=== PATIENT | female | born 1960 | race Caucasian/White ===

== ENCOUNTER → 2025-01-30 12:40 | Outpatient (REF) | payer MEDICARE, OTHER, SELFPAY | LOC: WDC 12:40 | PROVIDERS: ATTENDING PHYSICIAN Internal Medicine | DX: R92.333 Mammographic heterogeneous density, bilateral breasts (principal) | CPT/HCPCS: 76641 ==

== ENCOUNTER 2025-03-24 09:22 | Emergency (ER) | payer MEDICARE, OTHER, SELFPAY ==
[2025-03-24 09:24] VITALS: BP 115/84
[2025-03-24 09:58] VITALS: BP 131/85; BMI 23.6
--- NOTE | 2025-03-24 10:15 | EDRN ---
the pts came out of the pts room and approached this RN at the nurses station and asked this RN to adjust the pts HOB, this RN adjusted the pts HOB to the pts liking, the pt stated that her nose was bleeding, no bleeding currently
--- NOTE | 2025-03-24 10:16 | EDRN ---
Dr. [facility]
--- NOTE | 2025-03-24 11:06 | ED.GENMED ---
Addendum entered and electronically signed by Dali Livingston MD 03/24/25 14:37:
Patient adamantly refused tetanus shot, stating she is very allergic to it
Original Note:
History of Present Illness
General
Chief Complaint: Fall
Source: patient
Exam Limitations: none
Time Seen by Provider: 03/24/25 09:53
Nursing documentation reviewed up to this point in time: agreed with
History of Present Illness
History of Present Illness:
The patient is a pleasant 64-year-old female on no blood thinners, who reports that she tripped and fell over a cement sidewalk while walking her dog earlier today. Patient reports she fell onto both knees, her left elbow, her left shoulder and hit
the left side of her head. Patient reports that the left lens of her glasses cracked. Patient reports that she hit her face very hard against a cement. Patient also reports a small amount of bleeding from the left nostril. Patient has abrasions
of her left elbow, her bilateral knees, as well as a small laceration of the left eyebrow. Patient complains of significant pain along the left upper side of her face. She denies severe headache, nausea, vomiting or dizziness.
Past History
Past History
ED Past Medical History: Psychiatric (Anxiety)
ED Past Surgical History: Other (Lumpectomy)
Social History
Tobacco: Non-smoker
Alcohol: Other
Drug: None
Personal: Other
Living: with family
Employment: Other
Family History
Family History: Other
Review of Systems
Review of Systems
Allergies reviewed?: Yes
All Other Systems: ROS reviewed and negative except as documented in HPI and ROS
Constitutional: Reports no symptoms
EENT: Reports other (Soreness just left to left eye around left orbital area. No visual changes)
Respiratory: Reports no symptoms
Cardiac: Reports no symptoms
ABD/GI: Reports no symptoms
: Reports no symptoms
Musculoskeletal: Reports joint pain
Skin: Reports other
Neurological: Reports no symptoms
Endocrine: Reports no symptoms
Hematologic/Lymphatic: Reports no symptoms
Psychiatric: Reports no symptoms
Phy Exam
Physical Exam
Physical Exam:
General: Patient is nontoxic, conversational, smiling and laughing
HEENT: No scalp contusion or skull deformity, C-spine is nontender, ecchymotic left bony orbital area. Left ecchymotic upper cheek area. Extraocular muscles intact. 1 cm lac along left eyebrow
Cardiovascular is regular rate and rhythm. No chest wall tenderness
Lungs are clear bilaterally. Vertebral spine is nontender throughout
Abdomen is soft and nontender. No flank tenderness
Mild ecchymoses and soft tissue tenderness of left humeral area. Abrasion left lateral elbow. Pelvis and hips are nontender. Bilateral knee abrasions with mild tenderness of right patellar area
Neuro extraocular muscles intact, PERRL, 5 out of 5 strength in all extremities without drift. Normal [id number]
Course
Orders/Labs/Results
Orders:
Orders
03/24/25 09:57
CT Head W/o Iv Contrast Urgent
Comment:
Reason For Exam: fall with head strike
03/24/25 10:45
CT Facial Bones W/o Iv Contras Urgent
Comment:
Reason For Exam: fall
Shoulder, Left 2 View CR [CR Shoulder - Left Min 2 View*] Urgent
Comment:
Reason For Exam: fall, L shoulder pain
03/24/25 10:46
CR Knee- Right 4 Or More View* Urgent
Comment: sunrise view please
Reason For Exam: right knee pain, fall
Vital Signs
Initial and Last Documented VS:
Initial Vital Signs
Temp Pulse Resp BP Pulse Ox
98.0 F 81 18 115/84 100
03/24/25 09:24 03/24/25 09:24 03/24/25 09:24 03/24/25 09:24 03/24/25 09:24
Last Documented Vital Signs
Temp Pulse Resp BP Pulse Ox
97.6 F 82 20 131/85 99
03/24/25 09:58 03/24/25 09:58 03/24/25 09:58 03/24/25 09:58 03/24/25 11:06
MDM/Problems Addressed
Differential Diagnosis Includes:
Facial contusion, facial fractures, subdural hematoma
MDM/Problems Addressed:
Patient presents with acute left upper facial pain and swelling as well as acute left shoulder and acute right knee pain after a trip and fall
*Radiology
Radiology exam reviewed: preliminary read by ED provider (Left shoulder x-ray reviewed by me. No acute fracture seen. Right knee x-ray reviewed by me. No fracture seen) and radiology read reviewed
*Pulse Oximetry
SaO2: 99
Oxygen Mode of Delivery: Room air
Patient hypoxic: no
Comment: 99% on room air
*EKG
Interpreted by ED Provider?: NA
*Sales Floor Team Leader Interpretation
Rate: Sales Floor Team Leader- N/A
*Critical Care Note
Total Time (30-74mins, 75-104mins- exclusive of procedures): 35 minutes
comment:
35 minutes of critical care given to patient include many times counseling the patient about abrasions, wound care, her facial fractures as well as speaking to Dr. Roy from ENT
Data Reviewed
Source: patient
Patient Management
Social determinants of health affecting care: Living situation and Strong social support
Discussion with other providers: Other (Spoke to Dr. Roy who did not recommend antibiotics or operative repair of facial fractures. Offered outpatient follow-up)
Escalation/DeEscalation of care consider admission/obs:
Bilateral knee abrasions and left elbow abrasion irrigated with normal saline, antibiotic ointment applied and dressing applied. Left eyebrow laceration is 1 cm which was cleaned with normal saline, patted dry, and glue was used to close
ED Attending Note
-
Portions of this chart may have been created with voice recognition software.� Occasional wrong word or��sound alike� substitutions may have occurred due to the inherent limitations of voice recognition software.
Discharge Plan
Departure
Patient Disposition: Home (Routine Discharge)
Date of Disposition: 03/24/25
Time of Disposition: 12:39
Patient with high blood pressure during this ER visit?: No
Condition: Good
Covid-19: Not Applicable
Discharge Problem:
Bleeding from the nose, Abrasion of knee, bilateral, Facial laceration, Fracture of left maxillary sinus, Fracture of left orbital wall
Instructions: Laceration Repair With Glue (DC), Facial fractures, Wound care - ED (DC), Abrasions - ED (DC), Nosebleeds - ED (DC)
Prescriptions:
No Action
No Current Medications
0
Referrals:
[facility] [Other]
Tori Hatch MD [Family Provider, Internal Medicine]
Iwona Roy MD [Active, Otology]
Referral Note: Call Tuesday to follow-up with the office within 1 week
Activity Restrictions/Additional Instructions:
Take 400 mg of Motrin every 6-8 hours with food for pain. Apply an ice pack to your left face multiple times a day to control swelling and pain.
Do not blow your nose for at least 1 week. If needed, you can buy a saline mist nasal spray at a pharmacy to loosen up mucus and blood in your nose.
The glue that was used to close the laceration of your left eyebrow will dissolve on its own. Please do not scrub the left eyebrow laceration for at least 4 to 5 days.
Interventions
Interventions:
*Risk Screen - Suicide Last Done: 03/24/25 09:58
*General Assessment Last Done: 03/24/25 09:58
*Neglect/Abuse Screening Last Done: 03/24/25 09:58
*ED- Fall Risk Assessment Last Done: 03/24/25 09:58
*ED COVID-19 Vaccine History Last Done: 03/24/25 09:58
*Nursing Disposition Last Done: 03/24/25 13:11
ED-Musculoskeletal Assessment Last Done: 03/24/25 09:58
ED- Neurological Assessment Last Done: 03/24/25 09:58
ED-Skin Assessment Last Done: 03/24/25 09:58
Discharge Date and Time
Discharge Date/Time: 03/24/25 13:12
Print Language: SPANISH
== END 2025-03-24 13:12 | disposition home or self-care (01) ==
LOC: EMR 09:22
PROVIDERS: EMERGENCY PHYSICIAN Emergency Medicine; FAMILY PHYSICIAN Internal Medicine
DX: R04.0 Epistaxis (principal); S01.112A Laceration without foreign body of left eyelid and periocular area, initial encounter; S50.312A Abrasion of left elbow, initial encounter; S80.212A Abrasion, left knee, initial encounter; S80.211A Abrasion, right knee, initial encounter; S01.81XA Laceration without foreign body of other part of head, initial encounter; S02.40DA Maxillary fracture, left side, initial encounter for closed fracture; S02.85XA Fracture of orbit, unspecified, initial encounter for closed fracture; W01.0XXA Fall on same level from slipping, tripping and stumbling without subsequent striking against object, initial encounter
CPT/HCPCS: 99284; 12001; 70450; 70486; 73030; 73564